=== PATIENT | male | born 1935 | race Caucasian/White ===

== ENCOUNTER 2018-11-07 14:00 | Inpatient (IN) | payer MEDICARE ==
[2018-11-09 08:37] VITALS: BMI 26.6
--- NOTE | 2018-11-15 10:04 | OP ---
DATE OF PROCEDURE: 11/15/2018 PREOPERATIVE DIAGNOSIS: Rotator cuff arthropathy of the left shoulder. POSTOPERATIVE DIAGNOSIS: Rotator cuff arthropathy of the left shoulder. PROCEDURE PERFORMED: Left reverse total shoulder arthroplasty, left biceps tenodesis. IMPLANTS USED: A [employer] glenoid base plate 29 mm, glenosphere 36 mm x 29 base plate, standard stem 6B flex tray, high offset, poly 36 x 6, anterior screw 26, posterior screw 9, superior screw 26, inferior screw 26. NARRATIVE REPORT: After appropriate consent was obtained, the patient was placed in the beach chair position with a roll under the left shoulder. The left shoulder was prepped and draped in the usual sterile fashion. I made a standard deltopectoral approach. Cephalic vein was taken medially and preserved; branches were coagulated. The deltopectoral interval was opened. The biceps tendon was identified. The tendon was frayed and in poor condition. I removed the biceps from the groove and tagged it for later repair. It was eventually tagged to soft tissues using #5 Ethibond suture. The subscapularis was taken down. Bone spurs were removed. Subscapularis was tacked for later repair. Using the [place] guide, a standard cut was performed. I then exposed the glenoid circumferentially. I drilled a central hole and reamed the glenoid. The glenoid baseplate was deployed without difficulty and screws were inserted in the usual technique. Glenosphere was docked without difficulty after irrigation. Attention was turned to the humerus, which was opened with an acetabular and a shaft reamer to the appropriate size. Trial implant was placed and a trial reduction was performed. Trials were removed and irrigation performed. I placed drill holes through the lesser tuberosity to repair the subscapularis. Permanent implant was impacted into place. The shoulder was reduced and confirmed to have good stability throughout a range of motion. Subscapularis was tacked down with a cottony Dacron suture. Additional irrigation was performed. The deltopectoral interval was repaired with #2-0 Vicryl and subcutaneous tissue closed with 2-0 Vicryl. The skin was closed with alexandra and a sterile dressing was applied. IMPLANTS USED: Tornier 12 mm stem with a 9 mm polyethylene bushing and a standard baseplate and 36 glenosphere. Job ID: [id number]
[2018-11-15] MEDS ORDERED: HYDROcodone/Acetaminophen 10/325 mg Tablet PO PRN ×2 (11:28)
[2018-11-15] MEDS ORDERED: Promethazine HCl 25 MG/ML VIAL IM PRN (11:28)
[2018-11-15] MEDS ORDERED: Ondansetron PF 4 MG/2 ML Vial IVP PRN (11:28)
[2018-11-15] MEDS ORDERED: Zolpidem Tartrate 5 MG TAB PO PRN (11:28)
[2018-11-15] MEDS ORDERED: Ropivacaine 0.2% 550 ML 550 ML NERVE BLCK SCH (11:28)
[2018-11-15] MEDS ORDERED: traMADol HCl 50 MG TAB PO PRN ×2 (11:28)
[2018-11-15] MEDS ORDERED: Fentanyl 100 MCG/2 ML VIAL SLOW IVP PRN ×2 (11:30→12:19)
[2018-11-15] MEDS ORDERED: Ibuprofen 200 MG TAB PO PRN (11:39)
[2018-11-15] MEDS ORDERED: HYDROcodone/Acetaminophen 5/325 mg Tablet PO PRN (12:19)
[2018-11-15] MEDS: Ketorolac Tromethamine 30 MG/ML VIAL IVP SCH ×3 (12:29→23:01)
[2018-11-15] MEDS ORDERED: Sodium Chloride 0.9% 1,000 ML IV SCH (12:30)
[2018-11-15] MEDS: ceFAZolin 1 GM/D5W 1 GM in Premix Bag 1 BAG IVPB SCH ×2 (14:34→23:01)
[2018-11-15] MEDS ORDERED: Latanoprost 0.005% Ophth Soln 2.5 ml Bottle EA EYE SCH (21:00)
[2018-11-16] MEDS ORDERED: diphenhydrAMINE 25 MG CAP PO PRN (00:08)
[2018-11-16] MEDS ORDERED: diphenhydrAMINE 50 MG/ML VIAL IM PRN (00:08)
[2018-11-16] MEDS ORDERED: Naloxone HCl 0.4 mg/ml Vial IV PRN (00:08)
[2018-11-16] MEDS ORDERED: Zolpidem Tartrate 5 MG TAB PO PRN (00:08)
[2018-11-16] MEDS ORDERED: fentaNYL Citrate/PF 2,000 MCG in Sodium Chloride 0.9% 60 ML IV PRN (00:08)
[2018-11-16] MEDS ORDERED: diphenhydrAMINE 50 MG/ML VIAL IVP PRN (00:08)
[2018-11-16] MEDS ORDERED: Ondansetron PF 4 MG/2 ML Vial IVP PRN (00:08)
[2018-11-16] MEDS ORDERED: Promethazine HCl 25 MG/ML VIAL IM PRN (00:08)
[2018-11-16] MEDS ORDERED: Communication Order-Pharmacy FS SCH (00:15)
[2018-11-16] MEDS: Ketorolac Tromethamine 30 MG/ML VIAL IVP SCH ×2 (05:48→11:53)
[2018-11-16] MEDS ORDERED: Aspirin 81 mg Enteric Coated Tablet PO SCH ×2 (09:00)
[2018-11-16] MEDS ORDERED: Magnesium Oxide 400 MG TAB PO SCH (09:00)
[2018-11-16] MEDS ORDERED: Clopidogrel Bisulfate 75 MG TAB PO SCH (09:00)
[2018-11-16] MEDS ORDERED: Losartan 25 MG TAB PO SCH (09:00)
[2018-11-16] MEDS ORDERED: [UNRECOGNIZED DRUG - OTHER] PO SCH (09:00)
[2018-11-16] MEDS ORDERED: Fish Oil 1,000 MG CAP PO SCH (09:00)
[2018-11-16] MEDS ORDERED: Ascorbic Acid 500 mg Chewable Tablet PO SCH (09:00)
[2018-11-16] MEDS ORDERED: Finasteride 5 MG TAB PO SCH (09:00)
[2018-11-16 09:48] VITALS: BP 157/91; TEMP 98.4
[2018-11-16] MEDS ORDERED: HYDROcodone/Acetaminophen 10/325 mg Tablet PO PRN ×2 (10:33)
[2018-11-16] MEDS ORDERED: HYDROcodone/Acetaminophen 10/325 mg Tablet PO SCH (11:00)
[2018-11-17] MEDS ORDERED: Ibuprofen 200 MG TAB PO PRN (14:00)
== END 2018-11-16 15:05 | disposition home or self-care (01) | DRG 483 ==
LOC: SURG A 11-15 06:25 → SURG B 11-15 11:02
PROVIDERS: ADMIT Orthopaedic Surgery; ATTEND Orthopaedic Surgery
PROC: 0RRK00Z Replacement of Left Shoulder Joint with Reverse Ball and Socket Synthetic Substitute, Open Approach (ICD-10-PCS; principal; 2018-11-15)
PROC: 0LS40ZZ Reposition Left Upper Arm Tendon, Open Approach (ICD-10-PCS; 2018-11-15)
DX: M19.012 Primary osteoarthritis, left shoulder (principal)
CPT/HCPCS: A4306; J0690; J1885; J2795; J3010; J3490

== ENCOUNTER 2018-11-09 08:20 | Outpatient (CLI) | payer MEDICARE ==
[2018-11-09 10:22] LABS: #Basophils 0.1 thou/uL (0.0-0.2); #Eosinphils 0.2 thou/uL (0.0-0.7); #Lymphocytes 1.5 thou/uL (1.20-3.40); #Monocytes 0.5 thou/uL (0.11-0.59); %Basophils 1.2 % (0.0-1.0); %Eosinophils 3.3 % (0.0-10.0); %Lymphocytes 20.8 % (21.0-51.0); %Monocytes 6.6 % (0.0-10.0); %Neutrophils 68.1 % (42.0-75.0); Hemoglobin 15.3 g/dL (14.0-18.0); Mean Corpuscular HGB CONC 34.8 g/dL (32.0-36.0); Mean Corpuscular Hemoglobin 32.3 pg (27.0-31.0); Mean Corpuscular Volume 93.1 fL (78.0-98.0); Mean Platelet Volume 6.3 fL (7.4-10.4); Platelet Count 294 thou/uL (130-400); Red Blood Cell (RBC) Count 4.74 mill/uL (4.70-6.10); White Blood Cell (WBC) Count 7.3 thou/uL (4.8-10.8)
[2018-11-09 10:26] LABS: Prothrombin Time 13.3 SEC (12.0-14.7)
[2018-11-09 10:42] LABS: Anion Gap 12 mmol/L (10-20); BUN (Urea Nitrogen) 16 mg/dL (8.4-25.7); Calc. Creatinine Clearance 0 mL/min (70-130); Calcium 9.8 mg/dL (7.8-10.44); Carbon Dioxide 26 mmol/L (23-31); Chloride 104 mmol/L (98-107); Estimated GFR-MDRD 74; Glucose 99 mg/dL (83-110); Potassium 4.9 mmol/L (3.5-5.1); Sodium 137 mmol/L (136-145)
--- NOTE | 2018-11-09 21:28 | EKG ---
Test Reason : Blood Pressure : / mmHG Vent. Rate : 064 BPM Atrial Rate : 064 BPM P-R Int : 164 ms QRS Dur : 078 ms QT Int : 394 ms P-R-T Axes : 035 -03 041 degrees QTc Int : 406 ms Normal sinus rhythm Possible Anterior infarct , age undetermined Abnormal ECG No previous ECGs available Confirmed by Aleena JAMES ([id number]) on 11/09/2018 9:27:56 PM Referred By: DALE Confirmed By:Aleena JAMES
== END 2018-11-09 08:21 | disposition home or self-care (01) ==
LOC: LABBT 08:20
PROVIDERS: ATTEND Orthopaedic Surgery
DX: Z01.818 Encounter for other preprocedural examination (principal); M19.012 Primary osteoarthritis, left shoulder
CPT/HCPCS: 80048; 85025; 85610; 87081; 93005; 93010